=== PATIENT | male | born 1980 | race Caucasian/White ===

== ENCOUNTER 2018-01-29 21:19 | Emergency (ER) | payer OTHER, SELFPAY ==
[2018-01-29 21:20] VITALS: BP 131/81; PULSE 93; RESP 18; TEMP 36.5; O2SAT 94; BMI 26.4
--- NOTE | 2018-01-29 21:24 | EKG12_ITS ---
Test Reason : CP Blood Pressure : / mmHG Vent. Rate : 086 BPM Atrial Rate : 086 BPM P-R Int : 142 ms QRS Dur : 082 ms QT Int : 358 ms P-R-T Axes : 066 -24 053 degrees QTc Int : 428 ms Normal sinus rhythm Normal ECG Confirmed by UMAIR DELGADO, CARMEN ([id number]), food editor EDWIN VIZCARRA ([id number]) on 02/04/2018 3:14:07 PM Referred By: LEONEL/AVINASH Confirmed By:CARMEN BLOCK MD
--- NOTE | 2018-01-29 21:24 | ED.RN ---
NO OLD EKG'S IN MUSE.
--- NOTE | 2018-01-29 21:25 | RAD_ITS ---
STUDY: X-RAY CHEST REASON FOR EXAM: Male, 37 years old. Chest pain TECHNIQUE: Frontal view of the chest COMPARISON: None. FINDINGS: The lungs are clear. There are no pleural effusions. There is no pneumothorax. The heart is normal in size. The visualized osseous structures are within normal limits. RAD/Chest 1 View (Portable) IMPRESSION: No acute thoracic pathology. Electronically Signed: Rober Duron, at 21:58 EDT Tel , Service support ,
[2018-01-29 21:56] LABS: Absolute Lymphocyte Count 1.94 X10^3/ul (0.83-4.51); Absolute Neutrophil Count 6.2 X10^3/uL (2.0-7.7); Basophil# 0.04 X10^3/uL; Basophil% 0.4 % (0-1); Eosinophil# 0.13 X10^3/uL; Eosinophils% 1.4 % (0-5); Hematocrit 41.4 % (40-54); Hemoglobin 14.9 g/dl (13.0-16.5); Lymphocyte # 1.94 X10^3/ul (4.0); Lymphocyte % 21.5 % (19-41); Mean Platelet Vol. 9.2 fl (6.2-12.0); Monocyte# 0.67 X10^3/uL; Monocyte% 7.4 % (0-10); Neutrophil % 68.7 % (47-70); POSITIVE COUNT NO; POSITIVE DIFFERENTIAL NO; POSITIVE MORPHOLOGY NO; Platelet Count 290 K/mm3 (150-450); RBC Distribution Width CV 12.5 % (11.6-14.6); RBC Distribution Width SD 40.6 fl (35.1-43.9); Red Blood Count 4.65 M/mm3 (4.6-6.2)
[2018-01-29 21:57] VITALS: PULSE 87; RESP 15; O2SAT 95
[2018-01-29] MEDS: Aspirin 81 MG TAB.CHEW 324 MG PO (22:09)
[2018-01-29 22:10] LABS: Anion Gap 7 (5-15); BUN 22 mg/dL (7-18); BUN/Creat Ratio 18.6 RATIO (10-20); Calcium,Total 9.1 mg/dL (8.5-10.1); Chloride 106 mmol/L (98-107); Creatinine, Serum 1.18 mg/dL (0.70-1.30); EST Glomerular Filtration Rate 73 mL/min (>60); Est Glom Filt Rate - Afr Amer 88 mL/min (>60); Estimated Creatinine Clearance 115.25 ml/min; Glucose 90 mg/dL (74-106); Potassium 3.9 mmol/L (3.5-5.1); Sodium Level 141 mmol/L (136-145)
--- NOTE | 2018-01-29 22:16 | EKG12_ITS ---
Test Reason : REPEAT Blood Pressure : / mmHG Vent. Rate : 082 BPM Atrial Rate : 082 BPM P-R Int : 148 ms QRS Dur : 084 ms QT Int : 386 ms P-R-T Axes : 068 -15 048 degrees QTc Int : 450 ms Normal sinus rhythm Nonspecific ST and T wave abnormality Abnormal ECG Confirmed by UMAIR DELGADO, CARMEN ([id number]), telegraph editor EDWIN VIZCARRA ([id number]) on 02/04/2018 3:14:36 PM Referred By: CONSUELO Confirmed By:CARMEN BLOCK MD
[2018-01-29 22:21] LABS: D-Dimer Quantitative (DVT/PE) < 0.27 FEU/ug/m (0.27-0.49)
[2018-01-29 22:41] VITALS: BP 114/73; PULSE 82; RESP 22; O2SAT 96
[2018-01-29 23:06] VITALS: BP 109/66; PULSE 74; RESP 14; O2SAT 95
[2018-01-29 23:46] VITALS: O2SAT 98
[2018-01-30 00:17] VITALS: BP 123/79; PULSE 84; RESP 16; O2SAT 97
--- NOTE | 2018-01-30 00:40 | ED.DCSUM_ITS ---
- ER Visit Summary Date of Service: 01/30/18 Chief Complaint: Chest pain History of Present Illness: The patient is a 37 M who presents with chest pain. It began about 1 hour and 15 minutes prior to presentation here. It began while moving some heavy metal parts which she describes as moderate activity. It is waxed and waned since that time. It is substernal sharp and stabbing. It is nonradiating. Currently his pain is almost gone. However it was 9 at its worst. He denies associated symptoms such as nausea vomiting diaphoresis or shortness of breath. He has had 3 similar episodes over the past 2 years. This is his first time seeking medical care. He denies any history of exertional symptoms and is normally able to do physical activity without any chest pain or shortness of breath. He did have a [address] one month ago. No history of DVT or pulmonary embolism. He is a smoker. He has a history of ADHD but no other medical problems such as diabetes hypertension or hyperlipidemia. He denies family history of coronary disease at a young age. Physical Examination: Afebrile vitals are unremarkable Heart regular rate and rhythm Lungs are clear Abdomen soft Extremities nontender 2+ radial pulses, symmetric Alert Test Results: EKG shows normal sinus rhythm at a rate of 86. Repeat EKG unchanged. CBC BMP troponin and d-dimer are all normal. Repeat troponin remains negative. Chest x-ray shows no acute pathology. Emergency Department Course and Treatment: She has normal EKG and repeat EKG with negative repeat enzymes as well. His RON risk score is 0. His heart score is 1. His description of symptoms is not typical and he is low risk for coronary artery disease. I do not believe this is due to a cardiac etiology and given the presence of negative d-dimer I believe pulmonary embolism is ruled out. Patient was advised to follow-up with his primary care physician as an outpatient. He understands to return for new or worsening symptoms. All questions answered bedside. Treatment Plan: [] Disposition: Discharge Impression: Atypical chest pain This note was generated with [employer] dictation software. It may contain incorrect words, spelling, and punctuation that were not noted in review of the chart prior to signing ED Disposition - Plan for ED Patient: Chief Complaint: Chest Pain Referrals: [facility] [Primary Care Provider] -
--- NOTE | 2018-01-30 00:40 | ED.DEP ---
ED Disposition - Plan for ED Patient: Chief Complaint: Chest Pain Instructions: ED Chest Pain NonCardiac [place] [facility] [Primary Care Provider] -
[2018-01-30 00:47] VITALS: BP 125/87; PULSE 87; RESP 17; O2SAT 96
--- NOTE | 2018-01-30 00:48 | ED.RN ---
PT GIVEN WRITTEN AND VERBAL DISCHARGE INSTRUCTIONS. PT VERBALIZES UNDERSTANDING AND IMPORTANCE OF FOLLOW UP WITH PCP. PT DENIES ANY FURTHER QUESTIONS. PT IV D/C, ANGIO INTACT. SITE COVERED WITH 2X2 GAUZE DRESSING AND PAPER TAPE. PT AMBULATORY OUT OF DEPARTMENT WITHOUT ASSISTANCE NEEDED FROM STAFF, AFTER PT HAD DRESSED HIMSELF.
== END 2018-01-30 00:50 | disposition home or self-care (01) ==
LOC: ED 22:38
PROVIDERS: Emergency Provider Emergency Medicine
DX: R07.89 Other chest pain (principal); F90.9 Attention-deficit hyperactivity disorder, unspecified type; F17.200 Nicotine dependence, unspecified, uncomplicated
CPT/HCPCS: 36415; 71045; 80048; 84484; 85025; 85379; 93005; 99285; A4216

== ENCOUNTER → 2020-06-02 01:42 | Outpatient (CLI) | payer BC, SELFPAY | LOC: SL 01:42 | PROVIDERS: Visit Provider Nurse Practitioner Family | DX: R06.83 Snoring (principal); R06.81 Apnea, not elsewhere classified | CPT/HCPCS: 95810 ==

== ENCOUNTER 2020-08-02 11:49 | Day surgery (SDC) | payer BC, SELFPAY ==
--- NOTE | 2020-07-12 10:32 | EKG12_ITS ---
Test Reason : PRE OP Blood Pressure : / mmHG Vent. Rate : 079 BPM Atrial Rate : 079 BPM P-R Int : 148 ms QRS Dur : 086 ms QT Int : 378 ms P-R-T Axes : 068 -40 053 degrees QTc Int : 433 ms Normal sinus rhythm Left axis deviation Nonspecific T wave abnormality Abnormal ECG Confirmed by AUBREY DELGADO, ISSA ([id number]), video tape editor MARIBELL WALSH ([id number]) on 07/13/2020 8:46:36 AM Referred By: Tashia Pan Confirmed By:ISSA BURGOS MD
[2020-07-12 11:34] LABS: Hematocrit 51.1 % (40-54); Hemoglobin 17.7 g/dL (13.0-16.5); Mean Corp Hgb Conc 34.6 g/dL (32-36); Mean Corpuscular Hgb 31.6 pg (27.0-32.0); Mean Corpuscular Volume 91.1 fL (80-94); Mean Platelet Vol. 10.1 fl (6.2-12.0); Platelet Count 291 K/mm3 (150-450); RBC Distribution Width CV 12.7 % (11.6-14.6); RBC Distribution Width SD 42.6 fl (35.1-43.9); Red Blood Count 5.61 M/mm3 (4.6-6.2); White Blood Count 8.7 K/mm3 (4.4-11.0)
[2020-07-12 12:06] LABS: Anion Gap 3 (5-15); BUN 20 mg/dL (7-18); Calcium,Total 8.9 mg/dL (8.5-10.1); Chloride 104 mmol/L (98-107); Creatinine, Serum 1.25 mg/dL (0.70-1.30); EST Glomerular Filtration Rate 68 mL/min (>60); Est Glom Filt Rate - Afr Amer 82 mL/min (>60); Glucose 100 mg/dL (74-106); Sodium Level 137 mmol/L (136-145)
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
[2020-08-02 12:56] VITALS: BP 138/87; PULSE 85; RESP 16; TEMP 36.7; O2SAT 97; BMI 38.9
[2020-08-02] MEDS: Lactated Ringers 1,000 ML 75 ML IV (13:02)
--- NOTE | 2020-08-02 14:59 | DCINST_ITS ---
Discharge Diet: No Restrictions Discharge Activity: Return to Normal Activity, May not drive while taking narcotic pain medications. Lifting Restrictions: no lifting greater than 10 pounds for 6 weeks Call your doctor if your incision/area has: Continuous Slow Oozing, Foul Smelling Discharge Call your doctor if you observe: Fever of 101 or Higher Additional Instructions: Recommended pain control regimen - May take 600 mg ibuprofen (Motrin) and then in 3-4 hours, may take 650 mg acetaminophen (Tylenol), then in 3-4 hours may take 600 mg ibuprofen, then in 3- 4 hours may take 650 mg acetaminophen and so on for 2-3 days May take narcotic pain medication for pain that is not controlled by above and at night for comfort through the night Leave dressings in place May get dressings wet in shower - do not scrub in the area and pat dry Do not soak - no tub baths/swimming If dressing appears to be soiled/open at one end/no longer sealed - may remove dressing but leave site uncovered (do not replace with any type of dressing) - leave steristrips in place - may get wet but do not scrub in the area and pat dry For hernia surgery - Swelling and bruising will occur in the area of the incision Ice packs applied to the area will help, apply as long as tolerated and for your comfort Allergies/Adverse Reactions: Allergies No Known Allergies Allergy (Verified 07/07/20 13:21) Medications to take at Discharge Esomeprazole Mag Trihydrate [Nexium] 20 mg PO DAILY 01/29/18 Lisdexamfetamine Dimesylate [Vyvanse] 70 mg PO DAILY 07/07/20 Naproxen [Naprosyn] 250 mg PO DAILY PRN PRN 07/07/20 Testosterone Cypionate 100 mg IM QWEEK 07/07/20 cycloBENZAPRine HCl [Flexeril] 5 mg PO TID PRN PRN 07/07/20 Primary Care Physician: Trevon More T[employer]NTABLE WORKER, [employer] WORK[employer] [Primary Care Provider] - Test Results: Test results from this visit will be discussed in further detail at your follow- up appointment, if applicable. Please Follow Up With: Tashia Pan MD - call When: to be seen in 7-10 days please call for date and time, thank you
--- NOTE | 2020-08-02 15:29 | OP.PCM_ITS ---
Report of Operation Date of Procedure: 08/02/20 Pre-Operative Diagnosis: umbilical hernia Post-Operative Diagnosis: incarcerated umbilical hernia Surgery/Procedure Performed:: repair of incarcerated umbilical hernia Description of Surgical Findings:: incarcerated umbilical hernia with preperitoneal fat Type of Anesthesia:: General Anesthesiologist: Almas Vera Specimen's removed: none Estimated Blood Loss (mL): minimal Fluids Replaced: 1000 ml RL Description of Procedure: After informed consent was obtained, the patient was brought to the Operating Room. Appropriate time out protocol was followed. The patient was placed in the supine position. The patient was then placed under anesthesia. The abdomen was then prepped with a sterile surgical skin preparation. Sterile surgical drapes were placed. This skin and subcutaneous tissues were then widely infiltrated with the local anesthetic. A skin incision was then made with a 15 blade scalpel inferior to the umbilical dimple. It was carried down to the subcutaneous tissues using sharp dissection. Any hemorrhage was adequately controlled with electrocautery. Blunt dissection was done to separate the subcutaneous tissues from the umbilical hernia sac. The sac once freed of the subcutaneous tissues was then freed from the undersurface of the dermis of the umbilical skin. The sac was then freed up from the fascial surface. The fascial defect was then properly outlined. The sac was from the fas cial opening. The sac was opened and there was incarcerated contents within it - fatty tissue/omentum - no bowel. Hemostasis was controlled with electrocautery. The fascial defect was 1.5 cm. The fascial edges were reapproximated transversely using figure of 8 #1 PDS suture. The subdermis was reapproximated with interrupted 3-0 vicryl sutures. The skin incision was reapproximated with a running 4-0 Monocryl suture. Cavilon and steristrips were placed to reinforce the skin closure and a sterile opsite dressing was applied. The patient was brought from to the Recovery Room in stable condition. - Complications none noted - Admit VTE Documentation VTE Present on Admission: Yes VTE Mechan Device Prophylaxis: SCD's
[2020-08-02] MEDS: Bupiv/Epi 0.25% 30 ML Vial (15:30)
[2020-08-02 15:55] VITALS: BP 138/87; BP 155/87; PULSE 97; RESP 18; TEMP 36.4; O2SAT 93
[2020-08-02 16:00] VITALS: BP 138/87; BP 148/84; PULSE 95; RESP 20; O2SAT 95
[2020-08-02 16:15] VITALS: BP 138/87; BP 142/74; PULSE 88; RESP 16; O2SAT 94
[2020-08-02 16:27] VITALS: BP 138/87; BP 145/67; PULSE 87; RESP 18; TEMP 36.7; O2SAT 94
[2020-08-02 17:36] VITALS: BP 123/52; BP 138/87; PULSE 87; RESP 18; TEMP 36.2; O2SAT 98
== END 2020-08-02 17:38 | disposition home or self-care (01) ==
LOC: SDC 11:51 → AC 11:52
PROVIDERS: Anesthesiology; PCP Nurse Practitioner Family; Referring Provider Surgery; Visit Provider Surgery
PROC: (CPT 49587; principal; 2020-08-02 14:15)
DX: K42.0 Umbilical hernia with obstruction, without gangrene (principal); Z11.59 Encounter for screening for other viral diseases; Z79.899 Other long term (current) drug therapy; K58.9 Irritable bowel syndrome, unspecified; F43.20 Adjustment disorder, unspecified; F90.2 Attention-deficit hyperactivity disorder, combined type; F17.210 Nicotine dependence, cigarettes, uncomplicated; E66.01 Morbid (severe) obesity due to excess calories; Z68.39 Body mass index [BMI] 39.0-39.9, adult; K21.9 Gastro-esophageal reflux disease without esophagitis
CPT/HCPCS: 00830; 49587; 36415; 80048; 85027; 87635; 93005; C9803; J7120; J2405; U0003

== ENCOUNTER 2020-12-09 17:37 | Emergency (ER) | payer OTHER, BC, SELFPAY ==
[2020-12-09 17:38] VITALS: BP 163/95; PULSE 101; RESP 17; TEMP 35.8; O2SAT 96; BMI 39.6
--- NOTE | 2020-12-09 17:49 | ED.VISSUMM ---
- ER Visit Summary Date of Service: 12/09/20 Chief Complaint: Right elbow injury History of Present Illness: The patient is a 40 M who presents with a right elbow injury that occurred today at work. Patient states he was lifting a box of parts. 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 Patient states that he felt several pops in his right elbow. Patient states the pain is constant throbbing. Patient states the pain is worse with any movement. Patient denies any paresthesias or weakness. Patient denies any other injuries. Physical Examination: Vital signs are stable. Patient is afebrile. Patient is in no acute distress. Musculoskeletal exam reveals tenderness over the antecubital area of the right elbow. There is retraction of his bicep proximally. Range of motion of the right elbow was limited in all motion secondary to pain. Sensation was intact to light touch in the radial, median, and ulnar areas. Strength is 5/5 in the radial, median, and ulnar areas. Radial pulses are equal bilaterally. Test Results: X-rays of the right elbow were obtained. There are 2 views. On my interpretation, there is no acute fracture. There is no dislocation noted. Radiologist also interpreted the x-ray and agrees. Emergency Department Course and Treatment: Patient was given a dose of morphine here. Case was discussed with Dr. Becker. She will follow up with the patient in 4 days. Patient states he feels like he would be more comfortable in a sling. Patient was given a sling. Patient was given a prescription for Percocet. Patient was given a note for work to have no use of his right arm and wear the sling at all times. Patient understood and was agreeable with the plan. All questions were answered. Disposition: Discharge home Impression: 1. Distal bicep tendon rupture This note was generated with [employer] dictation software. It may contain incorrect words, spelling, and punctuation that were not noted in review of the chart prior to signing ED Disposition - Plan for ED Patient: Disposition: Home or Assisted Living Diagnosis: Traumatic rupture of distal biceps tendon Instructions: ED Muscle Strain, Extremity Prescriptions: Oxycodone HCl/Acetaminophen [Percocet 5/325] 1 tab PO Q6H PRN PRN 5 Days #20 tab PRN Reason: Pain Score 6-10 Prescription Printed Referrals: Chicorelli,Antonia, DO [STAFF PHYSICIAN] - 3-5 Days Additional Instructions: Call Dr. Becker's office tomorrow or Saturday to schedule a follow-up appointment. She will be in the office on Saturday.
--- NOTE | 2020-12-09 18:20 | RAD_ITS ---
STUDY: X-RAY - RIGHT ELBOW REASON FOR EXAM: Male, 40 years old. Injury/Pain TECHNIQUE: 2 view(s) of the elbow. COMPARISON: None. FINDINGS: This is a very suboptimal exam, only 2 views and no lateral view which is extremely evaluating the elbow. No gross fracture or dislocation. RAD/Elbow 2 Views IMPRESSION: No gross fracture or dislocation, but very limited by absence of lateral view. Electronically Signed: Truong Orantes MD at 18:50 EST , Service support ,
[2020-12-09] MEDS: Morphine 4 MG/ML Syringe IV (18:32)
== END 2020-12-09 19:29 | disposition home or self-care (01) ==
LOC: ED 19:10
PROVIDERS: Emergency Provider Emergency Medicine; PCP Nurse Practitioner Family
DX: S46.211A Strain of muscle, fascia and tendon of other parts of biceps, right arm, initial encounter (principal); F17.200 Nicotine dependence, unspecified, uncomplicated; K21.9 Gastro-esophageal reflux disease without esophagitis; X50.0XXA Overexertion from strenuous movement or load, initial encounter
CPT/HCPCS: 73070; 96374; 99284; A4216